=== PATIENT | female | born 1980 | race Caucasian/White ===

== ENCOUNTER 2020-02-18 07:05 | Day surgery (SDC) | payer BC ==
[~2020-02-18] VITALS: Ht 167.6 cm; Wt 58.1 kg
[~2020-02-18 07:05] MED LIST: CHOLESTYRAMINE1 PO1; MACROBID 1100 MG/CAP PO; PRENATAL1 TA1 PO
[2020-02-18 09:05] VITALS: BP 120/68; PULSE 86
--- NOTE | 2020-02-18 09:05 | NUR ---
Patient returns to [facility] [address] per cart and is awake and alert. Transfers with two person assist from cart to recliner. IV fluids infusing and site free of redness. Denies pain or nausea. Given Sprite to drink. Call light in reach. Allowed to rest.
[2020-02-18 09:20] VITALS: BP 112/66; PULSE 78
--- NOTE | 2020-02-18 09:20 | NUR ---
Dr. Briones in the room and talks with patient. All questions answered. Given toast to eat. Continues to deny pain or nausea.
[2020-02-18 09:35] VITALS: BP 117/67; PULSE 84
--- NOTE | 2020-02-18 09:35 | NUR ---
Tolerated toast and Sprite. Called ride in preparation for discharge.
--- NOTE | 2020-02-18 09:45 | NUR ---
IV discontinued and patient dresses self. Gait steady with movement.
--- NOTE | 2020-02-18 10:01 | NUR ---
Dismissal instructions given and voices understanding of these. Awaits ride home.
--- NOTE | 2020-02-18 10:12 | NUR ---
Patient dismissed to home driven by spouse and taken to the front door per wheelchair by this RN and assisted into vehicle with instructions in hand.
[2020-02-18 10:32] VITALS: BP 120/68; PULSE 103; TEMP 97.8
--- NOTE | 2020-02-18 10:37 | NUR ---
Initial visit; Patient having difficult time with blood draw attempts. Size Cutter attempted to calm patient and offered prayer and God's blessings for successful testing. Hoping to find solutions to Zulma's health issues and help and healing for her. Patient thanked Size Cutter for visit and prayer.
--- NOTE | 2020-02-18 10:40 | NUR ---
0715 PATIENT TO [facility]. WEIGHT OBTAINED. 0815 TROY VALE STARTED 22 G IV TO . THIS NURSE ATTEMPTED TO START X 3 ATTEMPTS. PATIENT BECAME NAUSEATED AND DIAPHORETIC WHEN PLACING THE IV WAS MENTIONED. PATIENT DID TOLRATE ATTEMPS AND IV PLACEMENT WELL.
== END 2020-02-18 10:12 | disposition home or self-care (01) ==
LOC: SDCO 07:05
DX: K58.0 Irritable bowel syndrome with diarrhea (principal); R63.4 Abnormal weight loss; F41.9 Anxiety disorder, unspecified; F32.9 Major depressive disorder, single episode, unspecified; Z20.828 Contact with and (suspected) exposure to other viral communicable diseases; Z79.899 Other long term (current) drug therapy; Z79.3 Long term (current) use of hormonal contraceptives
CPT/HCPCS: J2405; J2704

== ENCOUNTER → 2020-02-19 | Outpatient (CLI) | payer BC | LOC: MC.RAD 13:00 | DX: Z12.31 Encounter for screening mammogram for malignant neoplasm of breast (principal) ==

== ENCOUNTER → 2021-03-30 | Outpatient (CLI) | payer BC | LOC: MC.RAD 16:59 | DX: Z12.31 Encounter for screening mammogram for malignant neoplasm of breast (principal) ==